=== PATIENT | female | born 1980 | race Caucasian/White ===

== ENCOUNTER 2016-09-18 04:17 | Emergency (ER) | payer SELFPAY ==
[~2016-09-18] VITALS: Ht 172.7 cm; Wt 63.6 kg
[2016-09-18 04:25] VITALS: BP 154/118
[2016-09-18] MEDS ORDERED: LISI-662 PO (04:30)
== END 2016-09-18 05:45 | disposition left against medical advice (07) ==
LOC: EMS 04:20 → EDBD 04:20 → EMS 05:45
DX: Z53.21 Procedure and treatment not carried out due to patient leaving prior to being seen by health care provider (principal)